=== PATIENT | female | born 1955 | race Two or more races ===

== ENCOUNTER 2022-12-07 10:05 | Outpatient (CLI) | payer OTHER | END 2022-12-07 10:11 | disposition home or self-care (01) | LOC: MAMO-SONO 10:05 | PROVIDERS: ATTEND General Practice | DX: R07.9 Chest pain, unspecified (principal); M25.511 Pain in right shoulder; N64.59 Other signs and symptoms in breast ==

== ENCOUNTER 2022-12-15 08:39 | Outpatient (CLI) | payer OTHER | END 2022-12-15 08:48 | disposition home or self-care (01) | LOC: SONOGRAMA 08:39 | PROVIDERS: ATTEND General Practice | DX: M25.511 Pain in right shoulder (principal) ==

== ENCOUNTER 2022-12-15 11:21 | Outpatient (CLI) | payer OTHER | END 2022-12-15 11:22 | disposition home or self-care (01) | LOC: NUCLEAR 11:21 | PROVIDERS: ATTEND General Practice | DX: Z13.820 Encounter for screening for osteoporosis (principal) ==

== ENCOUNTER 2024-07-17 10:25 | Outpatient (CLI) | payer OTHER | END 2024-07-17 10:31 | disposition home or self-care (01) | LOC: MAMO-SONO 10:25 | PROVIDERS: ATTEND General Practice | DX: N64.4 Mastodynia (principal); Z12.31 Encounter for screening mammogram for malignant neoplasm of breast ==

== ENCOUNTER → 2024-07-18 08:08 | Outpatient (CLI) | payer OTHER | END | disposition home or self-care (01) | LOC: NUCLEAR 08:00 | PROVIDERS: ATTEND General Practice | DX: I73.9 Peripheral vascular disease, unspecified (principal); I87.2 Venous insufficiency (chronic) (peripheral) ==

== ENCOUNTER 2025-07-31 11:35 | Outpatient (CLI) | payer OTHER | END 2025-07-31 11:36 | disposition home or self-care (01) | LOC: NUCLEAR 11:35 | PROVIDERS: ATTEND General Practice | DX: M81.0 Age-related osteoporosis without current pathological fracture (principal) ==